=== PATIENT | male | born 1955 | race Caucasian/White ===

== ENCOUNTER 2025-02-24 11:23 | Outpatient (AMB) | payer MEDICARE, MEDICAID, SELFPAY ==
--- NOTE | 2025-02-24 11:30 | MHC.PC.OV ---
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 Printed [employer] Boards Plasma Etcher Required: No Accompanied by: Self / Same As Patient Allergies No Known Allergies Allergy (Verified 02/24/25 11:30) Tobacco use date assessed: 02/24/25 Fall risk assessment: No Falls in past year Last assessed Fall Risk: 02/24/25 Dental Screening Dental Screen Date: 02/24/25 Did you have a dental visit in the last 12 months?: No Did you have a dental problem in the last 6 months where you did not have access to dental care?: No Was dental information given to patient?: Patient declined HPI HPI Comments History of Present Illness Details History of Present Illness The patient is a 69-year-old male presenting for a new primary care physician and management of chronic conditions. Diabetes Mellitus Type 2: - The patient is on metformin and insulin glargine but has been without insulin for three weeks due to refill issues. Hypertension: - The patient takes metoprolol succinate for hypertension, which is elevated during visits due to anxiety but normalizes at home. Hypothyroidism: - The patient has hypothyroidism managed with levothyroxine. Hyperlipidemia: - The patient is treated with atorvastatin and ezetimibe for hyperlipidemia. Shortness of breath on exertion: - The patient uses an albuterol inhaler for exertional dyspnea. Skin lesion (mole): - The patient has a mole on his back, suspected seborrheic keratosis, and is advised to see a butcher supervisor. Review of Systems - Respiratory: Reports shortness of breath on exertion. Denies cough or wheezing. - Cardiovascular: Denies chest pain or palpitations. - Dermatological: Reports presence of a mole on the back. - Endocrine: Denies swelling of the lower legs. - Gastrointestinal: Denies changes in bowel habits. - Neurological: Denies dizziness or headaches. 10-point ROS reviewed and negative except as noted in HPI Past Medical History - Diabetes Mellitus Type 2 - Hypertension - Hypothyroidism - Hyperlipidemia - Cataract surgery on both eyes four years ago Health Maintenance - Referral to chief controller tower and eye doctor for routine check-ups - Colonoscopy performed two years ago with normal results Physical Exam General: Well-appearing, in no acute distress. Vital signs: Blood pressure is a little elevated, usually high during visits due to nervousness. HEENT: Normocephalic, atraumatic. PERRLA, EOMI. Conjunctiva clear, sclera anicteric. Oropharynx clear, mucous membranes moist. TMs intact bilaterally. Neck: Supple, no lymphadenopathy, no thyromegaly, no JVD or carotid bruits. Cardiovascular: RRR, normal S1/S2, no murmurs, rubs, or gallops. Peripheral pulses 2+ and symmetric. No edema. Respiratory: Lungs clear to auscultation bilaterally, no wheezes, rales, or rhonchi. Normal effort. Reports shortness of breath with exertion, uses albuterol inhaler. Abdomen: Soft, non-tender, non-distended. Normoactive bowel sounds. No hepatosplenomegaly, no masses. MSK: Full range of motion, no joint swelling or deformity. Normal gait. Skin: Warm, dry, intact. No rashes, lesions, or pallor. seborrheic keratosis on back, referral to butcher supervisor recommended. Neuro: Alert and oriented x3. Cranial nerves II-XII intact. Strength 5/5 throughout. Sensation intact. Reflexes 2+ symmetric. Normal coordination and gait. Psych: Appropriate mood and affect. Normal judgment and insight. Plan 1. Diabetes Mellitus Type 2 - Blood tests ordered for glucose monitoring and insulin refill management. 2. Hypertension - Home blood pressure monitoring advised for two weeks. 3. Hypothyroidism - Levothyroxine prescription refilled. 4. Hyperlipidemia - Continue current lipid-lowering therapy. 5. Shortness Of Breath On Exertion - Albuterol inhaler to be used as needed. Consider ECG and echo due to longstanding blood pressure and occasional shortness of breath 6. Skin Lesion (Mole) - Dermatology referral for mole evaluation. Discussion Notes During the visit, we discussed the management of diabetes, including the need for insulin refills and blood glucose monitoring. I advised the patient on home blood pressure monitoring to assess hypertension control. We also talked about the importance of continuing current medications for hyperlipidemia and hypothyroidism. I recommended a dermatology referral for the mole on his back. Follow-up appointments and lab work were scheduled to monitor his conditions. He also brought in his proxy form Which was entered into his EMR Patient was informed and verbally consented to the use of an ambient scribe for clinic note documentation during this visit. Patient Instructions - Monitor blood pressure at home twice daily and record readings. - Continue taking prescribed medications as directed. - Schedule and attend follow-up appointments and lab tests. - Use albuterol inhaler as needed for shortness of breath. - Follow up with a butcher supervisor for mole evaluation. Total time spent caring for the patient today was 30 minutes. This includes time spent before the visit reviewing the chart, time spent documenting, and time spent reviewing laboratory results, diagnostic imaging, medications, performing a medically necessary evaluation, counseling on diagnoses, care coordination, ordering appropriate tests, ordering appropriate medications. [facility] Medical History (Updated 02/24/25 @ 12:06 by Sean Lee MD) Seborrheic keratosis Family History (Updated 02/24/25 @ 11:41 by Mera Johnston MA) Father Emphysema lung Mother Diabetes Social History (Updated 02/24/25 @ 11:41 by Mera Johnston MA) Housing: Apartment Alcohol intake: current Alcohol intake frequency: does not drink Patient Tobacco Use Status: Never used Tobacco service: No Current occupational status: retired Cognitive needs: No Hearing needs: No Vision needs: No Questionnaire PHQ-9 Over the last 2 weeks, how often have you been bothered by any of the following problems? 1. Little interest or pleasure in doing things: not at all 2. Feeling down, depressed, or hopeless: not at all 3. Trouble falling or staying asleep, or sleeping too much: not at all 4. Feeling tired or having little energy: not at all 5. Poor appetite or overeating: not at all 6. Feeling bad about yourself - or that you are a failure or have let yourself or your family down: not at all 7. Trouble concentrating on things, such as reading the newspaper or watching television: not at all 8. Moving or speaking so slowly that other people could have noticed. Or the opposite - being so fidgety or restless that you have been moving around a lot more than usual: not at all 9. Thoughts that you would be better off or of hurting yourself in some way: not at all Total score: 0 Source: Developed by Drs. Clementina Valero, Rex Michael and colleagues, with an educational rosendo from [employer]. Thrive Questionnaire I am a: Patient What is your living situation today?: I have a steady place to live Within the past 12 months, did the food you bought not last and you didn't have the money to get more?: I choose not to answer this question Within the past 12 months, did you worry whether your food would run out before you got money to buy more?: Never true Do you have trouble paying for medicines?: No Do you have trouble getting transportation to medical appointments?: No Do you have trouble paying your heating and electricity bill?: No Do you have trouble taking care of your child, family member or friend?: I choose not to answer this question Are you currently unemployed and looking for a job?: No Are you interested in more education?: No Please select the resources that you would like help with: None Currently or been in a relationship where the following occur: I choose not to answer THRIVE Score: 0 AUDIT C Alcohol Use Questionnaire (AUDIT-C) 1. How often do you have a drink containing alcohol?: Never Total Score: 0 RAYMOND-7 AMB Questionnaire RAYMOND-7 Feeling nervous, anxious, or on edge: 0 = Not at all Not being able to stop or control worryin = Not at all Worrying too much about different things: 0 = Not at all Trouble relaxin = Not at all Being so restless that it is hard to sit still: 0 = Not at all Becoming easily annoyed or irritable: 0 = Not at all Feeling afraid as if something awful might happen: 0 = Not at all Total RAYMOND-7 score (0-4 normal; 5-9 mild; 10-14 moderate; 15-21 severe): 0 Source: Developed by Drs. Renan Norton, Clementina Smiley, Rex Michael and colleagues, with an educational rosendo from [employer]. Physical exam (Primary Care) Vital Signs: Last Vital Signs Temp 97.5 F 02/24/25 11:33 Pulse 96 02/24/25 11:33 Resp 16 02/24/25 11:33 BP 174/80 H 02/24/25 11:33 Pulse Ox 96 02/24/25 11:33 Oxygen Delivery Method Room Air 02/24/25 11:33 BMI result Body Mass Index 26.9 Tobacco/Smoking Status: Tobacco use Status Tobacco use date assessed 02/24/25 02/24/25 11:32 Patient Tobacco Use Status Never used Tobacco 02/24/25 11:41 PHQ-9: PHQ-9 Score PHQ-9: Total score 0 02/24/25 11:32 Currently or been in a relationship where the following occur: I choose not to answer Coding Level of Care Code New Pt Level 4 (88762) Diagnoses Seborrheic keratosis L82.1 Hypertension I10 Hypothyroid E03.9 Hyperlipidemia E78.5 Skin mole D22.9 Assessment & Plan Assessment & Plan (1) Seborrheic keratosis: Code(s): L82.1 - Other seborrheic keratosis Category: Medical (2) Hypertension: Code(s): I10 - Essential (primary) hypertension (3) Hypothyroid: Code(s): E03.9 - Hypothyroidism, unspecified (4) Hyperlipidemia: Code(s): E78.5 - Hyperlipidemia, unspecified (5) Skin mole: Code(s): D22.9 - Melanocytic nevi, unspecified Plan Orders: Orders Complete Blood Count Auto Diff Today E11.9 - Type 2 diabetes mellitus without complications, Z13.9 - Encounter for screening, unspecified Comprehensive Met. Panel Today E11.9 - Type 2 diabetes mellitus without complications, Z13.9 - Encounter for screening, unspecified HIV Ab/Ag Today E11.9 - Type 2 diabetes mellitus without complications, Z13.9 - Encounter for screening, unspecified Lipid Panel Today E11.9 - Type 2 diabetes mellitus without complications, Z13.9 - Encounter for screening, unspecified Vitamin B12 and Folate Today E11.9 - Type 2 diabetes mellitus without complications, Z13.9 - Encounter for screening, unspecified UA CC w/rflx Micro + Cult Today E11.9 - Type 2 diabetes mellitus without complications, Z13.9 - Encounter for screening, unspecified Hemoglobin A1c Today E11.9 - Type 2 diabetes mellitus without complications, Z13.9 - Encounter for screening, unspecified Hepatitis B Surface Antibody Today E11.9 - Type 2 diabetes mellitus without complications, Z13.9 - Encounter for screening, unspecified Hepatitis B Surface Antigen Today E11.9 - Type 2 diabetes mellitus without complications, Z13.9 - Encounter for screening, unspecified Hepatitis C Antibody Today E11.9 - Type 2 diabetes mellitus without complications, Z13.9 - Encounter for screening, unspecified Magnesium Today E11.9 - Type 2 diabetes mellitus without complications, Z13.9 - Encounter for screening, unspecified Syphilis Screen Today E11.9 - Type 2 diabetes mellitus without complications, Z13.9 - Encounter for screening, unspecified Microalbumin, Random (w Creat) Today E11.9 - Type 2 diabetes mellitus without complications, Z13.9 - Encounter for screening, unspecified Vitamin D 1,25 dihydroxy Today E11.9 - Type 2 diabetes mellitus without complications, Z13.9 - Encounter for screening, unspecified TSH reflex Free T4 Today E11.9 - Type 2 diabetes mellitus without complications, Z13.9 - Encounter for screening, unspecified Referrals Podiatry Referral E11.9 - Type 2 diabetes mellitus without complications Ophthalmology Referral E11.9 - Type 2 diabetes mellitus without complications Nutrition/Dietitian Referral E11.9 - Type 2 diabetes mellitus without complications Nurse Navigator Referral E11.9 - Type 2 diabetes mellitus without complications Dermatology Referral L82.1 - Other seborrheic keratosis, Z12.83 - Encounter for screening for malignant neoplasm of skin Medications: New levothyroxine 88 mcg PO QAM 90 tabs 0RF E03.9 - Hypothyroidism, unspecified insulin glargine-yfgn 20 units (0.2 mL) subcut QAM 15 mL 0RF E11.9 - Type 2 diabetes mellitus without complications metformin ER 500 mg PO QPM 90 tabs 0RF E11.9 - Type 2 diabetes mellitus without complications
[2025-02-24 11:33] VITALS: BP 174/80; PULSE 96; RESP 16; TEMP 36.4; O2SAT 96; BMI 26.9
== END 2025-02-24 12:03 | disposition home or self-care (01) ==
LOC: HO.HMCFMS 11:23
PROVIDERS: PCP Student in an Organized Health Care Education/Training Program; Visit Provider Student in an Organized Health Care Education/Training Program
DX: L82.1 Other seborrheic keratosis (principal); I10 Essential (primary) hypertension; E03.9 Hypothyroidism, unspecified; E78.5 Hyperlipidemia, unspecified; D22.9 Melanocytic nevi, unspecified

== ENCOUNTER 2025-02-24 11:23 | Outpatient (REF) | payer MEDICARE, MEDICAID, SELFPAY ==
[2025-02-24 17:48] LABS: MANUAL DIFF FLAG NO
[2025-02-24 18:09] LABS: Hematocrit 49.1 % (42.0-52.0); Hemoglobin 16.4 g/dl (14.0-18.0); Imm Gran Abs Auto 0.03 X10*3/uL (0.00-0.03); Imm Gran Pct Auto 0.3 % (0.0-0.4); Lymphocytes Absolute Auto 1.5 X10*3/uL (1.2-4.9); Mean Corpuscular HGB Conc 33.4 g/dl (31.0-36.0); Mean Corpuscular Hemoglobin 28.8 pg (27.0-33.0); Mean Corpuscular Volume 86.1 fL (80.0-98.0); NRBC Abs Auto 0.000 X10*3/uL (0.0-0.012); NRBC Pct Auto 0.0 /100WBC (0.0-0.2); Platelet Count 288 X10*3/uL (160-400); Red Blood Count 5.70 X10*6/uL (4.60-5.80); White Blood Count 8.7 X10*3/uL (4.8-10.8)
[2025-02-24 18:10] LABS: Microalbum/Creatinine Ratio Ur 116.2 ug/mg cr (<30)
[2025-02-24 18:13] LABS: Appearance Urine Clear; Glucose Urine UA >=1000 mg/dL (Negative); PH 5.0 (5.0-9.0); Specific Gravity - Urine >= 1.030 (1.005-1.025); UMIC TRIGGER UACC YES
[2025-02-24 18:48] LABS: Alanine Aminotransferase 68 U/L (0-40); Albumin Level 4.9 g/dL (3.5-5.0); Alkaline Phosphatase 131 U/L (39-117); Anion Gap 19 (12-20); Aspartate Amino Transferase 44 U/L (5-37); Blood Urea Nitrogen 25 mg/dL (9-16); Calcium 9.7 mg/dL (8.4-10.2); Carbon Dioxide 24 mmol/L (22-29); Chloride 105 mmol/L (96-108); Cholesterol 112 mg/dL (<200); Estimated Glomerular Filt Rate 54; HDL Cholesterol 42 mg/dL (>40); Magnesium 2.1 mg/dL (1.6-2.6); Potassium 4.7 mmol/L (3.3-5.1); Sodium 143 mmol/L (135-145); Total Protein 8.2 g/dL (6.5-8.0); Triglycerides 93 mg/dL (<150)
[2025-02-24 18:52] LABS: Folate 9.7 ng/mL (> or = 4.0); Vitamin B12 513 pg/mL (200-900)
[2025-02-25 08:29] LABS: Syphilis Screen Nonreactive (Nonreactive)
[2025-02-25 09:06] LABS: HBS Num1 0.10 mIU/mL (0-7.99); HBsAGNum1 0.68 S/CO (0.00-0.99); HIV Num 1 0.13 S/CO (0.00-0.99); Hepatitis B Surface Antigen Negative (Negative); ~HepC Num1 0.10 S/CO (0.00-0.79); ~Hepatitis B Surface Antibody NONREACTIVE (Nonreactive); ~Hepatitis C Antibody Nonreactive (Nonreactive)
[2025-02-28 18:58] LABS: VITAMIN D (1,25 OH) D3 29 pg/mL; Vit D (1,25-Dihydroxy) Total 29 pg/mL (18-72); Vitamin D (1,25 OH) D2 <8 pg/mL
== END 2025-02-24 11:24 | disposition home or self-care (01) ==
LOC: HO.HKASLDS 11:23
PROVIDERS: PCP Student in an Organized Health Care Education/Training Program; Visit Provider Student in an Organized Health Care Education/Training Program
DX: Z13.9 Encounter for screening, unspecified (principal); E11.9 Type 2 diabetes mellitus without complications; L82.1 Other seborrheic keratosis; I10 Essential (primary) hypertension; E03.9 Hypothyroidism, unspecified; E78.5 Hyperlipidemia, unspecified; D22.9 Melanocytic nevi, unspecified; Z79.84 Long term (current) use of oral hypoglycemic drugs
CPT/HCPCS: 36415; 80053; 80061; 81001; 82043; 82570; 82607; 82652; 82746; 83036; 83735; 84443; 85025; 86706; 86780; 86803; 87340; 87389; 96127; 99202

== ENCOUNTER 2025-03-10 10:49 | Outpatient (AMB) | payer MEDICARE, MEDICAID, SELFPAY ==
[2025-03-10 11:04] VITALS: BP 173/81; PULSE 84; RESP 16; TEMP 36.2; O2SAT 94; BMI 27.2
--- NOTE | 2025-03-10 11:04 | A.OFFPC_ITS ---
Vital Signs 03/10/25 11:04 Height 5 ft 9.88 in Weight 189 lb 4 oz BMI 27.2 BP 173/81 H Blood Pressure Location Lt brachial Position Sitting Respiration 16 Pulse 84 Pulse Source Pulse Oximeter Temp 97.2 F Temp Source Oral Pulse Oximetry (%) 94 Oxygen Delivery Method Room Air Intake Visit Reasons: 2 week follow up Room Service Waiter/Waitress Required: No Accompanied by: Self / Same As Patient Allergies No Known Allergies Allergy (Verified 03/10/25 11:05) Medication List - Last Reconciled 03/10/25 by Sean Lee MD albuterol sulfate 90 mcg/actuation 1 puff inhalation Q4H PRN aspirin 81 mg PO DAILY atorvastatin 80 mg PO BEDTIME cholecalciferol (vitamin D3) 50 mcg PO DAILY empagliflozin 25 mg PO QAM ezetimibe 10 mg PO DAILY insulin glargine-yfgn 20 units (0.2 mL) subcut QAM levothyroxine 88 mcg PO QAM metformin ER 500 mg PO QPM metoprolol succinate ER 25 mg PO DAILY pen needle, diabetic (Shonda 2nd Gen Pen Needle) As directed Tobacco use date assessed: 03/10/25 Fall risk assessment: No Falls in past year Last assessed Fall Risk: 02/24/25 Dental Screening Dental Screen Date: 03/10/25 Did you have a dental visit in the last 12 months?: No Did you have a dental problem in the last 6 months where you did not have access to dental care?: No Was dental information given to patient?: Patient declined HPI HPI Comments History of Present Illness Details Consent Patient was informed and verbally consented to the use of an ambient scribe for clinic note documentation during this visit. History of Present Illness The patient is a 69-year-old male presents for lab results Type 2 Diabetes Mellitus: The patient has a history of Type 2 Diabetes Mellitus, with a recent hemoglobin A1c level of 9.3, indicating poor glycemic control. He is currently on metformin 500 mg and insulin, with a regimen of 20 units in the am . The patient admitted to not taking insulin for a period due to lack of access, but has resumed its use recently. He is attempting to manage his diet by avoiding sugar, although he finds it challenging to find sugar-free options. Elevated Liver Enzymes: The patient has elevated liver enzymes, which may suggest a fatty liver, although the exact cause is unknown. An ultrasound of the liver has been recommended to further investigate the cause of the elevated enzymes. Hypertension: The patient monitors his blood pressure at home, reporting good control with normal readings over the past two weeks. He uses a personal blood pressure monitor to track his readings regularly. Fatty Liver (suspected): The patient may have a fatty liver, as suggested by elevated liver enzymes. An ultrasound has been ordered to confirm this suspicion and assess the liver's condition. Medications: - Metformin 500 mg, taken in the evening for Type 2 Diabetes Mellitus - Insulin, 20 units at night and additio nal dose in the morning for Type 2 Diabetes Mellitus Social History: - Diet: The patient is attempting to erickson id sugar and seeks sugar-free options, although he finds it challenging. Diagnostic Results: - Labs: Hemoglobin A1c at 9.3, indicatin g poor glycemic control. - Labs: Elevated liver enzymes, suggesti ng possible fatty liver. Review of Systems 10-point ROS reviewed and negative excep t as noted in HPI Past Medical History Health Maintenance - Ultrasound of the liver recommended to assess elevated liver enzymes and possible fatty liver. Physical Exam General: Well-appearing, in no acute distress. Vital signs: Blood pressure readings at home are good. HEENT: Normocephalic, atraumatic. PERRLA, EOMI. Conjunctiva clear, sclera anicteric. Oropharynx clear, mucous membranes moist. TMs intact bilaterally. Neck: Supple, no lymphadenopathy, no thyromegaly, no JVD or carotid bruits. Cardiovascular: RRR, normal S1/S2, no murmurs, rubs, or gallops. Peripheral pulses 2+ and symmetric. No edema. Respiratory: Lungs clear to auscultation bilaterally, no wheezes, rales, or rhonchi. Normal effort. Abdomen: Soft, non-tender, non-distended. Normoactive bowel sounds. No hepatosp lenomegaly, no masses. Liver enzymes slightly elevated; ultrasound recommended to check for fatty liver. MSK: Full range of motion, no joint swelling or deformity. Normal gait. Skin: Warm, dry, intact. No rashes, lesions, or pallor. Neuro: Alert and oriented x3. Cranial nerves II-XII intact. Strength 5/5 throughout. Sensation intact. Reflexes 2+ symmetric. Normal coordination and gait. Psych: Appropriate mood and affect. Normal judgment and insight. Plan 1. Type 2 Diabetes Mellitus - Continue current regimen of metformin and insulin. - Add Jardiance (empagliflozin) to impro ve glycemic control and protect cardiovascular and renal health. - Repeat labs in three months to assess glycemic control. 2. Elevated Liver Enzymes - Order an ultrasound of the liver to in vestigate the cause of elevated enzymes. 3. Hypertension - Continue monitoring blood pressure at home with personal device. 4. Fatty Liver (Suspected) - Ultrasound ordered to confirm diagnosi s and assess liver condition. 5. Chronic kidney disease 3a add Jardiance for renal protection and tighter glycemic control, monitor renal function Discussion Notes I discussed with the patient the importance of managing his diabetes, given his elevated hemoglobin A1c of 9.3. We talked about adding Jardiance to his regimen to help control his blood sugar and protect his heart and kidneys. I also explained the need for an ultrasound to investigate his elevated liver enzymes, which may indicate a fatty liver. We agreed to repeat labs in three months to monitor his progress. Patient Instructions - Continue taking metformin and insulin as prescribed. - Start taking Jardiance as directed to help control blood sugar. - Schedule and complete the liver ultras ound as soon as possible. - Monitor blood pressure regularly at [facility]. - Follow a low-sugar diet and seek sugar -free options. - Return for follow-up in three months f or repeat labs. Medical Decision Making The patient's hemoglobin A1c of 9.3 indicates poor glycemic control, necessitating an adjustment in his diabetes management. Adding Jardiance should aid in lowering his blood sugar while offering cardiovascular and renal protection. The elevated liver enzymes suggest a possible fatty liver, warranting an ultrasound for further evaluation. Continued monitoring of blood pressure at home is advised, given his history of hypertension. Total time spent caring for the patient today was 30 minutes. This includes time spent before the visit reviewing the chart, time spent documenting, and time spent reviewing laboratory results, diagnostic imaging, medications, performing a medically necessary evaluation, counseling on diagnoses, care coordination, ordering appropriate tests, ordering appropriate medications, review of tests performed by other providers, reporting test results with the patient, communication with other healthcare providers. [facility] Medical History (Updated 03/10/25 @ 11:27 by Sean Lee MD) Elevated alkaline phosphatase level Elevated liver enzymes Seborrheic keratosis Family History Father Emphysema lung Mother Diabetes Social History Housing: Apartment Alcohol intake: current Alcohol intake frequency: does not drink Patient Tobacco Use Status: Never used Tobacco service: No Current occupational status: retired Cognitive needs: No Hearing needs: No Vision needs: No Questionnaire Thrive Questionnaire Date Thrive assessed: 02/24/25 I am a: Patient What is your living situation today?: I have a steady place to live Within the past 12 months, did the food you bought not last and you didn't have the money to get more?: I choose not to answer this question Within the past 12 months, did you worry whether your food would run out before you got money to buy more?: Never true Do you have trouble paying for medicines?: No Do you have trouble getting transportation to medical appointments?: No Do you have trouble paying your heating and electricity bill?: No Do you have trouble taking care of your child, family member or friend?: I choose not to answer this question Are you currently unemployed and looking for a job?: No Are you interested in more education?: No Please select the resources that you would like help with: None Currently or been in a relationship where the following occur: I choose not to answer THRIVE Score: 0 Physical exam (Primary Care) Vital Signs: Last Vital Signs Temp 97.2 F 03/10/25 11:04 Pulse 84 03/10/25 11:04 Resp 16 03/10/25 11:04 BP 173/81 H 03/10/25 11:04 Pulse Ox 94 03/10/25 11:04 Oxygen Delivery Method Room Air 03/10/25 11:04 BMI result Body Mass Index 27.2 Tobacco/Smoking Status: Tobacco use Status Tobacco use date assessed 03/10/25 03/10/25 11:10 Patient Tobacco Use Status Never used Tobacco 03/10/25 11:10 Thrive Assessment: Date of Thrive Assessment Date Thrive assessed 02/24/25 03/10/25 11:10 Currently or been in a relationship where the following occur: I choose not to answer Coding Level of Care Code Est Pt Level 4 (01614) Diagnoses Elevated liver enzymes R74.8 Type 2 diabetes mellitus treated with insulin E11.9; Z79.4 Fatty liver K76.0 Hypothyroidism E03.9 White coat syndrome with hypertension I10 Chronic kidney disease, stage 3a N18.31 Assessment & Plan Assessment & Plan (1) Elevated liver enzymes: Code(s): R74.8 - Abnormal levels of other serum enzymes Category: Medical (2) Type 2 diabetes mellitus treated with insulin: Code(s): E11.9 - Type 2 diabetes mellitus without complications; Z79.4 - emt intermediate (current) use of insulin (3) Fatty liver: Code(s): K76.0 - Fatty (change of) liver, not elsewhere classified (4) Hypothyroidism: Code(s): E03.9 - Hypothyroidism, unspecified (5) White coat syndrome with hypertension: Code(s): I10 - Essential (primary) hypertension (6) Chronic kidney disease, stage 3a: Code(s): N18.31 - Chronic kidney disease, stage 3a Plan Orders: Orders US abdomen complete Today R74.8 - Abnormal levels of other serum enzymes Medications: New empagliflozin 25 mg PO QAM 90 tabs 0RF
--- OUTSIDE RECORDS SUMMARY | 2025-03-10 13:16 | XMS_ITS | Clinical Summary ---
Author Organization [facility] Advise Only [facility] Address [address] [place] [address] Phone Care Team Providers Care Braid Cutter Name Role Phone WmGeronimoJiNatalee Primary Care Pro vider Allergies No known active allergies Medications metFORMIN XR (GLUCOPHAGE-XR) 500 mg 24 hr tablet Take 1 tablet (500 mg total) by mouth 1 (one) time each day. Active albuterol HFA (PROAIR HFA ; PROVENTIL HFA ; VENTOLIN HFA) 90 mcg/actuation inhaler Inhale 2 puffs by mouth every 4 (four) hours if needed. Active acetaminophen (TYLENOL) 325 mg tablet Take 2 tablets (650 mg total) by mouth every 6 (six) hours if needed. Active levothyroxine sodium (TIROSINT) 88 mcg capsule Take 1 capsule (88 mcg total) by mouth 1 (one) time each day. Active aspirin 81 mg EC tablet Take 1 tablet (81 mg total) by mouth 1 (one) time each day. Active metoprolol succinate (TOPROL-XL) 25 mg 24 hr tablet Take 1 tablet (25 mg total) by mouth 1 (one) time each day. Active cholecalciferol (VITAMIN D-3) 50 mcg (2,000 unit) tablet Take 1 tablet (2,000 Units total) by mouth 1 (one) time each day. Active insulin glargine,hum.rec.anlog (BASAGLAR KWIKPEN U-100 INSULIN SUBQ) Inject 14 Units under the skin 1 (one) time each day. Active ezetimibe (ZETIA) 10 mg tabletIndications:Pure hypercholesterolemia Take 1 tablet (10 mg total) by mouth 1 (one) time each day. 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 Thoracic aortic aneurysm without rupture ([facility]/ C V24) 10/29/2021 Assessment & Plan (07/26/2024 1:34 PM EDT): Aortic dilatation 4.0 cm max dilatation. Coronary artery disease 04/10/2021 Overview (05/06/2024): status post stenting in 2011 Assessment & Plan (07/26/2024 1:34 PM EDT): Orders: ECG 12 lead Hyperlipidemia 04/10/2021 Overview (07/23/2024): Hx AWMI and LAD stenting. Aim LDL < 70 mg/dl. Assessment & Plan (07/26/2024 1:34 PM EDT): Orders: ezetimibe (ZETIA) 10 mg tablet; Take 1 tablet (10 mg total) by mouth 1 (one) time each day. Hypertension 04/10/2021 Assessment & Plan (07/26/2024 1:34 PM EDT): Elevated today. Check outpatient BP's. 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 Subsequent improved EF to 50-55% range. Stent patent in 2011. No recurrent angina. Assessment & Plan (07/26/2024 1:34 PM EDT): Encounters Date Type Department Care Team Description 03/04/2025 Telephone [facility] Cardiology [facility] [address] [place] [address] Mike Juarez NP from Last 3 Months Social History Tobacco Use Types Packs/Day Years Used Date Smoking Tobacco: Never Smokeless Tobacco: Never Alcohol Use Standard Drinks/Week Comments Never 0 (1 standard drink = 0.6 oz pur e alcohol) Sex and Gender Information Value Date Recorded Sex Assigned at Not on file Legal Sex Male 4:59 AM EST Gender Identity Not on file Sexual Orientation Not on file Obstetrics History Last Filed Vital Signs Vital Sign Reading Time Taken Comments Blood Pressure 158/90 07/26/2024 12:48 PM EDT Pulse 76 07/26/2024 12:48 PM EDT Temperature - - Respiratory Rate - - Oxygen Saturation 98% 07/26/2024 12:48 PM EDT Inhaled Oxygen Concentration - - Weight 88 kg (194 lb) 07/26/2024 12:48 PM EDT Height 180.3 cm (5' 11 ) 07/26/2024 12:48 PM EDT Body Mass Index 27.06 07/26/2024 12:48 PM EDT Plan of Treatment Upcoming Encounters Date Type Department Care Team (Late st Contact Info) Description 03/17/2025 10:30 AM EDT Appointment [facility] Ultrasound [address] [place] [address] Health Maintenance Due Date Last Done Comments Colorectal Cancer Screening: Colonoscopy 1955 DTaP,Tdap,and Td Vaccines (1 - Tdap) 12/08/1974 Zoster Vaccines (1 of 2) 12/08/2005 Cholesterol Screening (Lipid Panel) 04/28/2022 Falls Risk Assessment 04/28/2022 Hepatitis C Screening 04/28/2022 Hypertension/CHF/CAD Annual BMP Blood Test 04/28/2022 Medicare Annual Wellness Visit 04/28/2022 Social Influencers of Health Screening 04/28/2022 Depression Screening 05/19/2024 COVID-19 Vaccine (4 - 2025-2 6 season) 2025 12/17/2021, 04/04/2021, 03/14/2021 Influenza Vaccine (#1) 2025 RSV Immunization Adult Patients (1 - 1-dose 75+ series) 12/08/2030 Pneumococcal Vaccine: 50+ Years Completed 08/19/2023 HIB Vaccines Aged Out No longer eligi ble based on patient's age to complete this topic HPV Vaccines Aged Out No longer eligi ble based on patient's age to complete this topic Hepatitis A Vaccines Aged Out No long er eligible based on patient's age to complete this topic Hepatitis B Vaccines Aged Out No long er eligible based on patient's age to complete this topic IPV Vaccines Aged Out No longer eligi ble based on patient's age to complete this topic MMR Vaccines Aged Out No longer eligi ble based on patient's age to complete this topic Meningococcal ACWY Vaccine Aged Out N o longer eligible based on patient's age to complete this topic Meningococcal B Vaccine Aged Out No l onger eligible based on patient's age to complete this topic RSV Immunization Patients Under 20 months Aged Out No longer eligible b ased on patient's age to complete this topic Varicella Vaccines Aged Out No longer eligible based on patient's age to complete this topic Insurance MEDICAID - [place] MEDICARE Care Teams Braid Cutter Relationship Specialty Start Date End Date Natalee Peres DO [facility] [address] [place] [phone] PCP - General Internal Medicine 10/29/21
--- OUTSIDE RECORDS SUMMARY | 2025-03-10 13:16 | XMS_ITS | Clinical Summary ---
Author Organization [facility] Address [address] [place] [address] Phone Care Team Providers Care Shellfish Processing Laborer Name Role Phone KatiebertoNatalee Ferrell DO Primary Care Pro vider Allergies No known active allergies Medications aspirin (ST CHAIM) 81 MG EC tablet Take 1 tablet by mouth 1 (one) time each day Active atorvastatin (LIPITOR) 40 MG tablet Take 1 tablet by mouth 1 (one) time each day in the evening Active cholecalciferol (VITAMIN D-3 SUPER STRENGTH) 50 MCG (1999 UT) tablet Take 1 tablet by mouth 1 (one) time each day Active metoprolol succinate XL (TOPROL XL) 25 MG 24 hr tablet Take 1 tablet by mouth 1 (one) time each day Active ProAir HFA 108 (90 Base) MCG/ACT inhaler 2 puffs if needed 03/15/2021 Active nitroglycerin (NITROSTAT) 0.4 MG SL tablet if needed 03/15/2021 Active Acetaminophen 160 MG tablet dispersible Take by mouth if needed Active Tirosint 88 MCG capsule Take 88 mcg by mouth 1 (one) time each day 03/20/2022 Active insulin glargine (LANTUS) 100 UNIT/ML injection Inject under the skin every night Active metFORMIN (FORTAMET) 500 MG 24 hr tablet Take 500 mg by mouth 1 (one) time each day with dinner Do not crush, chew, or split. Active Active Problems Problem Noted Date Diagnosed Date Acute nontraumatic kidney injury 04/02/2021 Stage 3a chronic kidney disease 04/02/2021 Hypertensive nephrosclerosis 04/02/2021 Hyperkalemia 04/02/2021 Chest pain, not otherwise specified 04/02/2021 Labile hypertension due to being in a clinical e nvironment 04/02/2021 Type 2 diabetes mellitus without complication Dyslipidemia 04/02/2021 Immunizations Immunization Administration Dates Next Due Influenza Split High Dose Pr eservative Free IM 02/16/2019,02/16/2014,02/16/2013 Pneumococcal Conjugate 13-Valent 02/06/2015 Pneumococcal Polysaccharide 02/19/2012 Family History Medical History Relation Comments Cancer Father lung cancer Diabetes Mother Kidney disease Mother on dialysis Cancer Sibling stomach lung and liver cancer Relation Status Comments Father Mother Sibling Social History Tobacco Use Types Packs/Day Years Used Date Smoking Tobacco: Never Smokeless Tobacco: Never Tobacco Cessation:Counseling Given: No Alcohol Use Standard Drinks/Week Comments Never 0 (1 standard drink = 0.6 oz pur e alcohol) Sex and Gender Information Value Date Recorded Sex Assigned at Not on file Legal Sex Male 5:00 PM EST Gender Identity Not on file Sexual Orientation Not on file Last Filed Vital Signs Vital Sign Reading Time Taken Comments Blood Pressure 154/88 05/03/2024 10:46 AM EST Pulse 86 05/03/2024 10:46 AM EST Temperature - - Respiratory Rate - - Oxygen Saturation 96% 05/03/2024 10:46 AM EST Inhaled Oxygen Concentration - - Weight 87.4 kg (192 lb 9.6 oz) 05/03/2024 10:46 AM EST Height 180.3 cm (5' 11 ) 05/03/2024 10:46 AM EST Body Mass Index 26.86 05/03/2024 10:46 AM EST Plan of Treatment Upcoming Encounters Date Type Department Care Team (Late st Contact Info) Description 05/03/2025 11:00 AM EST Office Visit [facility] [address] [phone] Daryl Freeman MD [address] [phone] Health Maintenance Due Date Last Done Comments Colorectal Cancer Screening: Annual FOBT 12/08/2004 Colorectal Cancer Screening: Colonoscopy 12/08/2004 Colorectal Cancer Screening: Sigmoidoscopy 12/08/2004 Pneumococcal Vaccine: 50+ Years (3 of 3 - PCV20 or PCV21) 02/18/2017 02/06/2015, 02/19/2012 Diabetes: Ophthalmology Exam 04/02/2021 Diabetes: Pedal Pulse Checked 04/02/2021 Diabetes: Sensory Foot Exam 04/02/2021 Diabetes: Visual Foot Exam 04/02/2021 Diabetes: Hemoglobin A1C 06/26/2023 023, 03/14/2021 Influenza Vaccine (#1) 2025 9, 02/16/2014, 02/16/2013 Pneumococcal Vaccine: Peds ( 0 to 5 Years) and At-Risk Patients (6 to 49 Years) Discontinued 02/06/2015, 02/19/2012 Hepatitis B Vaccine Aged Out No longe r eligible based on patient's age to complete this topic Procedures Procedure Name Priority Date/Time Associated Diagnosis Comments HEMOGLOBIN A1C Routine 03/26/2023 9:57 AM EST Stage 3a chronic kidney disease (HCC) Hypertensive nephrosclerosis Hyperkalemia Type 2 diabetes mellitus without complication (HCC) Acute injury of kidney (HCC) Labile hypertension due to being in a clinical environment Dyslipidemia from Last 3 Months or Most Recently Relevant to Health Maintenance Results * (ABNORMAL) Hemoglobin A1c (03/26/2023 9:57 AM EST) Hemoglobin A1C 14.3(H) (4.0-5.6) % [facility] Comment: MONITORING: In known diabetic patients, hemoglobin A1c targets should be discussed with health care provider. DIAGNOSTIC USE: The [place] Diabetes Association (ADA) and the World Health Organization (WHO) recommend the use of HbA1c to diagnose diabetes using a threshold of 6.5%. Patients who have an HbA1c between 5.7% and 6.4% are considered at increased risk for developing diabetes in the future. CAUTION: Falsely low HbA1c results may be observed in patients with hemolytic anemia, homozygous forms of abnormal hemoglobin (e.g. SS, CC, SC), , recent blood loss or hemoglobin F greater than 7%. Fructosamine may be used as an alternate test in these cases. REFERENCE: ADA: Standards of Medical Care in Diabetes 2020, The Journal of Clinical and Applied Research and Education Volume 43, Supplement 1 Testing performed or reported by [facility], a Service of [facility], [address] [place] [address] Saul Rogers MD, Marine Equipment Sales Engineer [facility]# [id number] Blood specimen (specimen) Venous blood / Unknown 03/26/2023 9:57 AM EST 03/26/2023 9:58 AM EST us Daryl Freeman MD LAB BLOOD ORDERABLES Final Re sult [facility] from Last 3 Months or Most Recently Relevant to Health Maintenance Insurance Medicare Medicaid [place] Medicare Care Teams Shellfish Processing Laborer Relationship Specialty Start Date End Date Natalee Peres DO [address] [place] [phone] PCP - General Internal Medicine 05/03/24
--- OUTSIDE RECORDS SUMMARY | 2025-03-10 13:16 | XMS_ITS | Encounter Summary ---
Author Organization [facility] Address [address] [place] [address] Care Team Providers Care Box Toe Cementer Name Role Phone Natalee Peres DO Primary Care Pro vider Reason for Visit * Reason Onset Date Comments Booking July Appointment 03/04/2025 Encounter Details Date Type Department Care Team (Late st Contact Info) Description 03/04/2025 Telephone [facility] Cardiology [place] [address] [place] [phone] Mike Juarez NP [address] [place] [address] [address] [place] [address] Social History Tobacco Use Types Packs/Day Years Used Date Smoking Tobacco: Never Smokeless Tobacco: Never Alcohol Use Standard Drinks/Week Comments Never 0 (1 standard drink = 0.6 oz pur e alcohol) Sex and Gender Information Value Date Recorded Sex Assigned at Not on file Legal Sex Male 4:59 AM EST Gender Identity Not on file Sexual Orientation Not on file documented as of this encounter Progress Notes * Camacho Bingham - 03/07/2025 10:40 AM EDT Left message on machine for patient to call back to book recall appointment with Alex Patricio in July. When patient calls back, please book next available in July * Mike Juarez NP - 03/04/2025 3:55 PM EDT Please give patient appointment to see me in July. Please call patient once appointment is made. Thank you. documented in this encounter Plan of Treatment Upcoming Encounters Date Type Department Care Team (Late st Contact Info) Description 03/17/2025 10:30 AM EDT Appointment [facility] Ultrasound [address] [place] [phone] documented as of this encounter Visit Diagnoses Not on filedocumented in this encounter Care Teams Box Toe Cementer Relationship Specialty Start Date End Date Natalee Peres DO [facility] [address] [place] [phone] PCP - General Internal Medicine 10/29/21 documented as of this encounter
== END 2025-03-10 11:31 | disposition home or self-care (01) ==
LOC: HO.HMCFMS 10:49
PROVIDERS: Visit Provider Student in an Organized Health Care Education/Training Program
DX: R74.8 Abnormal levels of other serum enzymes (principal); E11.9 Type 2 diabetes mellitus without complications; Z79.4 Long term (current) use of insulin; K76.0 Fatty (change of) liver, not elsewhere classified; E03.9 Hypothyroidism, unspecified; I10 Essential (primary) hypertension; N18.31 Chronic kidney disease, stage 3a

== ENCOUNTER → 2025-03-10 10:49 | Outpatient (BNVA) | payer MEDICARE, MEDICAID, SELFPAY | PROVIDERS: Visit Provider Student in an Organized Health Care Education/Training Program | DX: R74.8 Abnormal levels of other serum enzymes (principal); E11.22 Type 2 diabetes mellitus with diabetic chronic kidney disease; I12.9 Hypertensive chronic kidney disease with stage 1 through stage 4 chronic kidney disease, or unspecified chronic kidney disease; N18.31 Chronic kidney disease, stage 3a; K76.0 Fatty (change of) liver, not elsewhere classified; E03.9 Hypothyroidism, unspecified; Z79.4 Long term (current) use of insulin; Z79.84 Long term (current) use of oral hypoglycemic drugs | CPT/HCPCS: 99212 ==